=== PATIENT | male | born 1980 | race African-American/Black ===

== ENCOUNTER 2022-02-28 06:46 | Emergency (ER) | payer MEDICAID, SELFPAY ==
[2022-02-28 06:48] VITALS: BP 179/108; PULSE 94; RESP 16; TEMP 36.1; O2SAT 98; BMI 23.5
--- NOTE | 2022-02-28 07:24 | PC.NURSE ---
addendum to triage note: patient reports recently binge drinking and consistent use of powder cocaine and crack, fears losing everything , drinking etoh many days of week but not everyday, feels unaffected with etoh abstinence. on no medications currently, previously has tried therapy but no current providers. denies hallucinations. contracts for safety. attests to passive SI but no identified method, intent, or plan. reports current cigarette smoking.
--- NOTE | 2022-02-28 08:24 | ED.PSYCH ---
HPI - Psych General Chief Complaint: Psychiatric Symptoms Stated Complaint: Psychiatric eval Time Seen by Provider: 02/28/22 08:19 Source: patient Mode of arrival: ambulatory Limitations: no limitations History of Present Illness HPI Narrative: 41-year-old male previously healthy here with reports of depression, feeling hopeless, using substances daily. Patient denies any suicidal homicidal ideations. No hallucinations. Patient tells me he is using cocaine, marijuana and drinking alcohol daily. His last use was yesterday. He denies any IV use of drugs. Patient has no physical complaints. Related Data Home Medications Medication Instructions Recorded Confirmed No Known Home Meds 02/28/22 02/28/22 Allergies Allergy/AdvReac Type Severity Reaction Status Date / Time No Known Allergies Allergy Verified 02/28/22 06:53 Review of Systems Review of Systems: Yes all other systems are reviewed and are negative Constitutional: Constitutional: Reports no additional constitutional complaints, Denies body ache(s), Denies chills, Denies fever(s), Denies headache(s) and Denies weakness Eyes: Eyes: Reports no additional eye complaints and Denies change in vision ENT: Reports system reviewed and no additional complaints, except as documented, Denies dizziness, Denies headache(s), Denies nasal congestion, Denies nasal discharge and Denies neck pain Cardiovascular: Cardiovascular: Reports no additional cardiovascular complaints, Denies chest pain, Denies leg edema and Denies dyspnea Respiratory: Respiratory: Reports no additional respiratory complaints, Denies cough and Denies dyspnea Gastrointestinal: Gastrointestinal: Reports no additional gastrointestinal complaints, Denies abdominal pain, Denies diarrhea, Denies nausea and Denies vomiting Genitourinary: Genitourinary: Denies urinary incontinence Musculoskeletal: Musculoskeletal: Reports no additional musculoskeletal complaints, Denies back pain, Denies arthralgias, Denies joint swelling, Denies neck pain, Denies numbness and Denies tingling Integumentary/Breasts: Skin/Breast: Reports system reviewed and no additional complaints, except as docu and Denies rash Neurologic: Reports system reviewed and no additional complaints, except as documented, Denies Abnormal speech present, Denies dizziness, Denies headache(s), Denies numbness, Denies tingling and Denies weakness Psychiatric: Psychiatric: Reports depression and Denies suicidal ideation [facility] Past Medical History Attestation statement: The following information was validated with the patient. Source: old records reviewed and nursing notes reviewed Social History Social History Advance Directives: No Advance Directives Information Provided: No Physical Exam Vital Signs: Vital Signs: Last Vital Signs Temp 96.9 F 02/28/22 06:48 Pulse 95 02/28/22 10:36 Resp 16 02/28/22 10:36 BP 131/72 02/28/22 10:36 Pulse Ox 98 02/28/22 06:48 BMI result Body Mass Index 23.5 Const: General: cooperative, healthy appearing, comfortable and no acute distress Orientation/consciousness: patient oriented x3 Limitations: no limitations HEENT: Head: Yes normal to inspection Ears: hearing grossly normal bilaterally General nose exam: Normal external nose present Face and sinus: Yes normal facial exam Mouth: Normal oral and palatal mucosa present Throat: Yes posterior oropharynx normal Eyes: General: appearance normal, both eyes and all related structures Pupils: Equal, round and reactive pupils present Neck: Neck: Yes normal visual inspection Chest: Chest palpation & inspection: normal inspection of the chest Resp: Effort & Inspection: normal respiratory effort Auscultation: clear to auscultation bilaterally Cardio: Rate: regular rate Rhythm: regular rhythm Peripheral pulses: Peripheral pulses 2+ throughout GI: Inspection: Yes normal to inspection Palpation (GI): Soft to palpation and nontender Auscultation: normal bowel sounds Back/Spine/Pelvis: Thoracic/Lumbar Spine: thoracic and lumbar spine normal to inspection Skin: General skin exam: no rashes or lesions noted Neuro: General: patient oriented x3, no focal motor deficits and normal sensation to monofilament Cranial nerves: Yes CN's II-XII intact bilaterally and Yes Equal, round and reactive pupils present Cognition (Neuro): normal cognition Speech: No Abnormal speech present Gait exam (Neuro): Normal gait present Motor exam (neuro): 5/5 motor strength present throughout Extrem: General: Yes normal to inspection Course Course Course Narrative: 41-year-old male here with using multiple substances over the last few weeks, feeling depressed and hopeless. Tells me that using substances has started to impact his personal relationships. Seeking help. No suicidal thoughts. Will obtain toxicology report, COVID screen. Will involve care team. Reevaluation(s) Reevaluation #1: Patient seen by care team Harpreet. Accepted to detox. He got a bed at [facility] and his plan is to go home to collect some things and then his partner will bring him there. He has no suicidal thoughts. He is comfortable with the plan of care. Reviewed worrisome signs and symptoms of when to return to the emergency department. Comfortable discharge home. [facility] - Psych Medical Records Attestation: I reviewed the patient's medical records. Lab Data Attestation: I reviewed the patient's lab results. Labs: Lab Results 02/28/22 02/28/22 02/28/22 Range/Units 08:46 09:52 10:13 Urine Opiates Screen Not Detected (Not Detect) Urine Fentanyl Screen Not Detected (Not Detect) Ur Barbiturates Screen Not Detected (Not Detect) Ur Phencyclidine Scrn Not Detected (Not Detect) Ur Amphetamines Screen Not Detected (Not Detect) U Benzodiazepines Scrn Not Detected (Not Detect) Urine Cocaine Screen POSITIVE H (Not Detect) U Marijuana (THC) Screen POSITIVE H (Not Detect) Ethyl Alcohol < 10 mg/dL COVID-19 (MAHIN) Negative (Negative) COVID-19 Clin Com See Note Discharge Plan Discharge Clinical Impression: Cocaine abuse, Alcohol abuse Patient Disposition: Home, Self-Care Instructions: Cocaine Abuse (ED), Abuse of Alcohol (ED) Additional Instructions: Go direct to [facility] Prescriptions: No Action No Known Home Meds 0RF Referrals: Physician,Unknown J [Primary Care Provider] - 5 days (as needed) Interventions: ED Discharge Assessment Last Done: 02/28/22 11:51 Discharge Date/Time: 02/28/22 11:52
[2022-02-28 08:40] VITALS: RESP 18
[2022-02-28 09:15] LABS: COVID-19 Test Negative (Negative)
--- NOTE | 2022-02-28 09:49 | MHC.RECOVSUP ---
Addendum entered by Harpreet Serrano [facility] 02/28/22 11:41: Accepted to [place]. Will transport self. Original Note: Recovery Support note: Patient is a 41 year old Yakut speaking male who presented to [facility] seeking substance use treatment. Patient reports drinking on average 2 beers and 2 nips on weekdays and over a pint of liquor on weekends. In addition, patient reports regular use of cocaine. Patient reports his substance use is causing problems in his professional and personal life and that he is ready to begin his recovery. This policy writer sales will assist patient in referring to ATS facilities. Patient has never been before and is open to going anywhere. Discussed case with RN and ED provider.
[2022-02-28 10:11] LABS: Ethanol < 10 mg/dL
[2022-02-28 10:36] VITALS: BP 131/72; PULSE 95; RESP 16
[2022-02-28 10:42] LABS: Amphetamine Screen Urine Not Detected (Not Detect); Barbiturates, Urine Not Detected (Not Detect); Benzodiazepines Screen Urine Not Detected (Not Detect); Cannabinoid Screen Urine POSITIVE (Not Detect); Cocaine Screen Urine POSITIVE (Not Detect); Fentanyl, urine Not Detected (Not Detect); Opiate Screen Urine Not Detected (Not Detect); Phencyclidine Screen Urine Not Detected (Not Detect)
== END 2022-02-28 11:52 | disposition home or self-care (01) ==
PROVIDERS: Nurse Practitioner Family; Emergency Provider Emergency Medicine
DX: F14.10 Cocaine abuse, uncomplicated (principal); F10.10 Alcohol abuse, uncomplicated; F12.90 Cannabis use, unspecified, uncomplicated; Z20.822 Contact with and (suspected) exposure to COVID-19
CPT/HCPCS: 36415; 80307; 82077; 87635; 99284

== ENCOUNTER 2022-04-11 13:17 | Emergency (ER) | payer MEDICAID, SELFPAY ==
--- NOTE | ~2022-04-11 | XR_ITS ---
EXAMINATION: XR TIBIA AND FIBULA, RIGHT CLINICAL INFORMATION: Pain at proximal right fibula. COMPARISON: None TECHNIQUE: AP and lateral views of the right tibia and fibula were obtained. An indicator arrow points to the proximal fibula. FINDINGS: The bones and soft tissues are normal. No fracture. No osseous lesions. XR/XR tibia fibula RT 2V IMPRESSION: Unremarkable right tibia and fibula. Specifically, the proximal right fibula appears intact.
[2022-04-11 13:22] VITALS: BP 173/84; PULSE 102; RESP 20; TEMP 37.2; O2SAT 99; BMI 21.9
--- NOTE | 2022-04-11 13:53 | ED_ITS ---
HPI - General Adult General Chief complaint: Extremity Injury, Lower Stated complaint: both legs inj by auto door Time Seen by Provider: 04/11/22 13:53 Source: patient Mode of arrival: ambulatory Limitations: no limitations History of Present Illness HPI narrative: Patient is a 44 year old male presenting to the emergency department today with right lower leg pain. Patient states that his right lower leg was closed in his car door and is now causing pain. Patient denies any dizziness, lightheadedness, abdominal pain, nausea, vomiting, fever, chills, blurry vision, double vision, loss of vision, chest pain, difficulty breathing, shortness of breath, back pain, night sweats, pain with urination, increased urinary frequency, increased urinary urgency, blood in his urine or stool, syncope or a near syncopal episode, bowel incontinence, bladder incontinence, bowel retention, bladder retention, or any other complaints at this time. Onset (ago): hour(s) Location: right and lower extremity Radiation: non-radiation Severity: mild Severity scale (1-10): 2 Quality: dull Pain Consistency: constant Relieving factors: none Exacerbating factors: none Associated symptoms: denies other symptoms Treatments prior to arrival: none Related Data Previous Rx's Medication Instructions Recorded cephalexin 500 mg capsule 500 mg PO Q6H 7 days #28 caps 04/11/22 Allergies Allergy/AdvReac Type Severity Reaction Status Date / Time No Known Allergies Allergy Verified 02/28/22 06:53 Review of Systems Constitutional: Constitutional: Reports no additional constitutional complaints, Denies chills, Denies fever(s) and Denies night sweats Eyes: Eyes: Reports no additional eye complaints, Denies blurry vision, Denies change in vision, Denies diplopia, Denies eye discharge, Denies loss of vision and Denies eye pain ENT: Denies dizziness Cardiovascular: Cardiovascular: Reports no additional cardiovascular complaints, Denies chest pain, Denies lightheadedness, Denies Loss of Consciousness and Denies dyspnea Respiratory: Respiratory: Reports no additional respiratory complaints and Denies dyspnea Gastrointestinal: Gastrointestinal: Reports no additional gastrointestinal complaints, Denies abdominal pain, Denies melena, Denies hematochezia, Denies change in bowel habits and Denies change in stool character Genitourinary: Genitourinary: Reports no additional male genitourinary complaints, Denies hematuria, Denies oliguria, Denies difficulty urinating, Denies dysuria, Denies urinary frequency, Denies urinary hesitancy, Denies urinary incontinence and Denies urinary urgency Musculoskeletal: Musculoskeletal: Reports no additional musculoskeletal complaints, Denies numbness and Denies tingling Comments: right lower leg pain Neurologic: Denies dizziness, Denies loss of vision, Denies numbness and Denies tingling Psychiatric: Psychiatric: Reports no additional psychiatric complaints Endocrine: Endocrine: Reports no additional endocrine complaints Hematologic/Lymphatic: Hematologic/Lymphatic: Reports no additional hematologic/lymphatic complaints Allergic/Immunologic: Allergic/Immunologic: Reports no additional allergic/immunologic complaints [facility] Past Medical History Attestation statement: The following information was validated with the patient. Source: old records reviewed Social History Social History Advance Directives: No Advance Directives Information Provided: No Physical Exam ED Vital Signs: Vital Signs - 24 hr 04/11/22 13:22 04/11/22 14:58 Temperature 99 F 98.9 F Pulse Rate 102 H 68 Respiratory Rate 20 18 Blood Pressure 173/84 H 143/83 H Pulse Oximetry 99 98 Oxygen Delivery Method Room Air Room Air BMI result Body Mass Index 21.9 Const General: cooperative, no acute distress, alert and awake Nutritional Appearance: well nourished Orientation/consciousness: patient oriented x3 Limitations: no limitations HENMT Head: Yes normal to inspection and Yes atraumatic Ears: hearing grossly normal bilaterally and external ears normal General nose exam: Normal external nose present, no nasal discharge noted and no epistaxis Face and sinus: Yes normal facial exam, No abrasion and No laceration Mouth: Normal oral and palatal mucosa present, no drooling and no muffled voice Eyes General: appearance normal, both eyes and all related structures Periorbital: periorbital findings normal Eyelids: Yes eyelids normal Conjunctivae: conjunctivae normal Pupils: Equal, round and reactive pupils present EOM: EOMs intact bilaterally Neck Neck: Yes normal visual inspection, Yes full ROM and Yes no lymphadenopathy Chest Chest palpation & inspection: normal inspection of the chest Resp Effort & Inspection: normal respiratory effort and able to speak in complete sentences Auscultation: clear to auscultation bilaterally Cardio Rate: regular rate Rhythm: regular rhythm GI Inspection: Yes normal to inspection Neuro General: patient oriented x3 and moves all extremities Cranial nerves: Yes Equal, round and reactive pupils present Cognition (Neuro): normal cognition Motor exam (neuro): 5/5 motor strength present throughout Sensory Exam: Normal double simultaneous stimulation for sensation Coordination: [id number] test normal Extrem Other: right lower leg abrasion, no active bleeding General: Yes full ROM and Yes capillary refill normal Psych Appearance: grossly normal Mental Status: mental status grossly normal Affect: normal affect Attitude: cooperative Thought process: Normal thought process present Thought content: Normal thought content present Insight: Good insight present (Psych) Medical Decision Making MDM Narrative Medical decision making narrative: Patient is a 42 year old male presenting to the emergency department today with right lower leg pain. Patient's physical exam showed a right lower leg abrasion with no active bleeding. Patient's right lower leg x-ray showed no acute process. I explained my physical exam findings as well as all test results to the patient. I answered all questions asked by the patient. I stressed the importance of the patient taking his medication as prescribed. I stressed the importance of the patient following up with his primary care provider. I stressed the importance of the patient returning to the emergency department immediately if his symptoms were to worsen or if [he/she/they] were to develop any dizziness, shortness of breath, difficulty breathing, chest pain, blurry vision, loss of vision, nausea, vomiting, abdominal pain, fever, chills, back pain, or any other complaints. Patient verbalized agreement and understanding with this treatment plan and discharge. Differential Diagnosis Differential Diagnosis: leg arbasion Medical Records Medical records reviewed: Yes I reviewed the patient's medical records. Imaging Data Left lower leg x-ray: Attestation: I personally reviewed and interpreted this imaging study as follows: Radiologist's impression: EXAMINATION: XR TIBIA AND FIBULA, RIGHT CLINICAL INFORMATION: Pain at proximal right fibula. COMPARISON: None? TECHNIQUE: AP and lateral views of the right tibia and fibula were obtained. An indicator arrow points to the proximal fibula. FINDINGS: The bones and soft tissues are normal. No fracture. No osseous lesions. XR/XR tibia fibula RT 2V IMPRESSION: Unremarkable right tibia and fibula. Specifically, the proximal right fibula appears intact. ? Dictated By: Gurjit Rodas MD Signed By: Electronically signed by Gurjit Rodas MD 04/11/22 6727 Discharge Plan Discharge Clinical Impression: Abrasion Patient Disposition: Home, Self-Care Instructions: Abrasion (ED) Additional Instructions: Follow up with your primary care provider. Return to the emergency department immediately if your symptoms worsen or if you develop any dizziness, shortness of breath, difficulty breathing, chest pain, blurry vision, loss of vision, nausea, vomiting, abdominal pain, fever, chills, back pain, or any other compl aints. Prescriptions: New cephalexin 500 mg capsule 500 mg PO Q6H 7 Days Qty: 28 0RF Referrals: [facility] Family Medicine [Provider Group] (Call to establish and follow up with a primary care provider. If you already have a primary care provider, contact them to follow up.) [facility] Primary CareZaheer [Provider Group] (Call to establish and follow up with a primary care provider. If you already have a primary care provider, contact them to follow up.) [facility] Primary Care,Joel [Provider Group] (Call to establish and follow up with a primary care provider. If you already have a primary care provider, contact them to follow up.) Stand Alone Forms: Work/School Release Interventions: ED Discharge Assessment Last Done: 04/11/22 15:16 Discharge Date/Time: 04/11/22 15:17 Print Language: Yi
[2022-04-11] MEDS: Diphth,Pertus(ACell),Tet Adult 0.5 ML SYRINGE IM (14:08)
[2022-04-11 14:58] VITALS: BP 143/83; PULSE 68; RESP 18; TEMP 37.2; O2SAT 98
== END 2022-04-11 15:17 | disposition home or self-care (01) ==
PROVIDERS: Emergency Provider Emergency Medicine
DX: S80.811A Abrasion, right lower leg, initial encounter (principal); S89.91XA Unspecified injury of right lower leg, initial encounter; Y29.XXXA Contact with blunt object, undetermined intent, initial encounter; Y93.9 Activity, unspecified; Y92.9 Unspecified place or not applicable; Y99.9 Unspecified external cause status
CPT/HCPCS: 73590; 90471; 90715; 99283

== ENCOUNTER 2025-08-11 19:09 | Emergency (ER) | payer SELFPAY ==
[2025-08-11 19:40] VITALS: BP 148/78; PULSE 81; RESP 16; TEMP 36.9; O2SAT 97; BMI 22.7
--- NOTE | 2025-08-11 19:42 | ED.GENADULT ---
HPI - General Adult General Chief complaint: Wound/Laceration Stated complaint: right leg injur from work gash on mireles Time Seen by Provider: 08/11/25 20:11 Source: patient Mode of arrival: ambulatory Limitations: no limitations History of Present Illness ED Provider: Dr. Killian HPI narrative: 45-year-old male presented hospital today for evaluation of laceration of his right lower extremity. Patient was using a stone outer diameter grinder working on a chimney when it kicked back and cut his right mireles. He stated his tetanus shot is up-to-date at this time. Related Data Previous Rx's ?Medication ?Instructions ?Recorded cephalexin 500 mg capsule 500 mg PO Q6H 7 days #28 caps 04/11/22 acetaminophen 500 mg tablet 1,000 mg (2 x 500 mg) PO Q8H PRN 08/11/25 (Tylenol Extra Strength) pain #60 tabs cephalexin 500 mg capsule 500 mg PO Q8H 7 days #21 caps 08/11/25 ibuprofen 400 mg tablet 400 mg PO Q8H PRN pain #60 tabs 08/11/25 Allergies Allergy/AdvReac Type Severity Reaction Status Date / Time No Known Allergies Allergy Verified 08/11/25 19:42 Review of Systems Review of Systems: Pertinent review of systems as mentioned in HPI. All other system otherwise negative. [facility] Past Medical History Attestation statement: The following information was validated with the patient. [facility] Narrative: None Social History Social History Advance Directives: No Advance Directives Information Provided: Yes Do you have a plan to hurt others: No Plan Physical Exam ED Exam Exam: General: Pleasant, no distress, interacting appropriately Head: Normacephalic, atraumatic Extremities: Two laceration over the right mireles. Oozing blood one of them is 5 cm in size the other one is 3 cm Neurological: Awake and alert, no facial droop noted Skin: Warm and dry Psychiatric: Appropriate mood and thoughts Vital Signs: Vital Signs - 24 hr 08/11/25 19:40 Temperature 98.5 F Pulse Rate 81 Respiratory Rate 16 Blood Pressure 148/78 H Pulse Oximetry 97 Oxygen Delivery Method Room Air BMI result Body Mass Index 22.7 Course Course Course Narrative: RME, this is a rapid medical exam performed by Bi Mcdonough please refer to primary provider for complete H&P- 45-year-old male presents for evaluation of a right mireles laceration. He accidentally cut himself with a outer diameter grinder that kicked back to while at work. He has been a 3 cm linear laceration to the right anterior mireles. Most recent Tetanus was updated as of April 11, 2022 Procedures Laceration Laceration 1: Site: lower extremity Side (If applicable): right Size (cm): 5 Description: linear Depth: simple, single layer Local Anesthetic: lidocaine 1% Amount of anesthesia used (mL): 5 Pre-repair: irrigated extensively Skin layer closed with: nylon Size (cm): 4-0 Number of sutures: 7 Technique: simple, interrupted Laceration 2: Site: lower extremity Side (If applicable): right Size (cm): 3 Description: linear Depth: simple, single layer Local Anesthetic: lidocaine 1% Amount of anesthesia used (mL): 5 Skin layer closed with: nylon Size (cm): 4-0 Number of sutures: 4 Technique: simple, interrupted Medical Decision Making Medical Decision Making MDM Narrative: 45-year-old male presented hospital today for laceration of right lower extremity. The patient says tetanus shot is up-to-date at this time. I did not appreciate obvious lower extremity deformity. Patient is able to ambulate without any issues. I have low suspicion of fracture. Patient's wound is actively bleeding at this time. I did place 2 sutures to provide hemostasis to the wound. Appears to be venous in nature. I repair his wound with 1% lidocaine. A total of 11 simple interrupted stitches was placed. 4-0 nylon was used. Wound was irrigated extensively Keflex will be prescribed for prophylactic antibiotic. We will plan to prescribe ibuprofen and Tylenol for pain control. Discussed with the patient encouraged suture removal in 10-14 days. Patient agrees and understands this plan all questions were addressed. Differential Diagnosis Differential Diagnoses: The differential diagnosis associated with the presentation includes Laceration, tibial fracture Discharge Plan Discharge Clinical Impression: Laceration Patient Disposition: Home, Self-Care Instructions: Care For Your Stitches (ED) Additional Instructions: You have 11 stitches. Follow up with primary care clinic or urgent care or return to ED for stitch removal i opiaten 10-14 days. Watch for signs of infection. Keep wound clean and dry. Prescriptions: New cephalexin 500 mg capsule 500 mg PO Q8H 7 Days Qty: 21 0RF ibuprofen 400 mg tablet 400 mg PO Q8H PRN (Reason: pain) Qty: 60 0RF acetaminophen [Tylenol Extra Strength] 500 mg tablet 1,000 mg PO Q8H PRN (Reason: pain) Qty: 60 0RF No Action cephalexin 500 mg capsule 500 mg PO Q6H 7 Days Qty: 28 0RF Print Language: Citizen [place]
[2025-08-11] MEDS: Lidocaine HCl 1 % 20 ML VIAL 5 ML INFILTRATI (21:34)
[2025-08-11 22:04] VITALS: BP 148/78; PULSE 81; RESP 16; TEMP 36.9; O2SAT 97
== END 2025-08-11 22:04 | disposition home or self-care (01) ==
PROVIDERS: Emergency Provider Student in an Organized Health Care Education/Training Program
DX: S81.811A Laceration without foreign body, right lower leg, initial encounter (principal); X58.XXXA Exposure to other specified factors, initial encounter; Y93.89 Activity, other specified; Y92.89 Other specified places as the place of occurrence of the external cause; Y99.8 Other external cause status
CPT/HCPCS: 12004; 99282; 99284; J2003